=== PATIENT | female | born 1930 | race Caucasian/White ===

== ENCOUNTER 2017-03-21 11:05 | Day surgery (SDC) | payer MEDICARE, OTHER ==
[~2017-03-21] VITALS: Ht 170.2 cm; Wt 62.5 kg
[2017-03-21] VITALS (8 sets, daily range): BP systolic 152–194; BP diastolic 53–78; PULSE 71–86; TEMP 98.1
[2017-03-21 12:01] LABS: INR 2.2 (0.8-3.0); PROTHROMBIN TIME 24.9 SECONDS (9.7-12.8)
[2017-03-21] MEDS ORDERED: AEROSPAN80 MCG/Act IH (12:02)
[2017-03-21] MEDS ORDERED: PROAIR HFA0.09 MG/AC IH (12:02)
[2017-03-21] MEDS ORDERED: ZOCOR 20MG20 MG PO (12:03)
[2017-03-21] MEDS ORDERED: HCTZ 25MG TAB25 MG PO (12:03)
[2017-03-21] MEDS ORDERED: COUMADIN 6MG6 MG/TAB PO (12:04)
[2017-03-21] MEDS ORDERED: SYNTHROID0.05 MG/TA PO (12:04)
[2017-03-21] MEDS ORDERED: LANOXIN 0.120.125 MG PO (12:05)
[2017-03-21 12:06] LABS: POTASSIUM 3.6 mmol/L (3.4-5.0)
[2017-03-21] MEDS ORDERED: TAZTIA360 (12:06)
[2017-03-21 12:41] LABS: THYROID STIMULATING HORMONE 0.555 uIU/mL (0.465-4.680)
[2017-03-21] MEDS ORDERED: ELIQUIS 2.5 PO (15:15)
[2017-03-21] MEDS ORDERED: CORDARONE200 MG/TAB PO ×2 (15:17→15:18)
== END 2017-03-21 17:00 | disposition home or self-care (01) ==
LOC: COL.CAR 11:05
PROVIDERS: Internal Medicine Interventional Cardiology
DX: I48.1 Persistent atrial fibrillation (principal); I08.0 Rheumatic disorders of both mitral and aortic valves
CPT/HCPCS: J2250; J3010

== ENCOUNTER 2017-05-08 11:38 | Day surgery (SDC) | payer MEDICARE, OTHER ==
[~2017-05-08] VITALS: Ht 170.3 cm; Wt 61.3 kg
[~2017-05-08 11:38] MED LIST: AEROSPAN80 MCG/Act IH; CORDARONE200 MG/TAB PO; COUMADIN 6MG6 MG/TAB PO; ELIQUIS 2.5 PO; HYDRODIURIL50 MG PO; LANOXIN 0.120.125 MG PO; PROAIR HFA0.09 MG/AC IH; SYNTHROID0.05 MG/TA PO; TAZTIA360; ZOCOR 20MG20 MG PO
[2017-05-08] MEDS ORDERED: ASPIRIN 81M81 MG/TA2 PO (12:27)
[2017-05-08] MEDS ORDERED: MULTI VITAMINS1 TAB PO (12:28)
[2017-05-08 12:29] VITALS: BP 153/65; PULSE 88; TEMP 98
[2017-05-08] MEDS ORDERED: CALCIUM 600 PLU1 TAB PO (12:29)
[2017-05-08 12:34] LABS: POTASSIUM 3.2 mmol/L (3.4-5.0)
[2017-05-08 12:39] LABS: INR 1.4 (0.8-3.0); PROTHROMBIN TIME 16.7 SECONDS (9.7-12.8)
[2017-05-08 13:08] LABS: THYROID STIMULATING HORMONE 0.902 uIU/mL (0.465-4.680)
[2017-05-08 13:40] VITALS: BP 143/53; PULSE 67
[2017-05-08 13:55] VITALS: BP 151/60; PULSE 71
[2017-05-08 14:10] VITALS: BP 146/54; PULSE 68
[2017-05-08 14:25] VITALS: BP 138/53; PULSE 71
== END 2017-05-08 15:11 | disposition home or self-care (01) ==
LOC: COL.CAR 11:38
PROVIDERS: Internal Medicine Interventional Cardiology
DX: I48.1 Persistent atrial fibrillation (principal); I08.0 Rheumatic disorders of both mitral and aortic valves; Z79.01 Long term (current) use of anticoagulants; I10 Essential (primary) hypertension; E03.9 Hypothyroidism, unspecified; Z82.49 Family history of ischemic heart disease and other diseases of the circulatory system; Z80.9 Family history of malignant neoplasm, unspecified; Z68.21 Body mass index [BMI] 21.0-21.9, adult
CPT/HCPCS: J2704; J3010; J7120

== ENCOUNTER 2017-05-22 11:55 | Day surgery (SDC) | payer MEDICARE, OTHER ==
[~2017-05-22] VITALS: Ht 170.3 cm; Wt 59.8 kg
[2017-05-22] VITALS (315 sets, daily range): BP systolic 130–165; BP diastolic 52–80; PULSE 39–84; TEMP 97.7–98.6; O2SAT 92–97
[~2017-05-22 11:55] MED LIST changes: +ASPIRIN 81M81 MG/TA2 PO; +CALCIUM 600 PLU1 TAB PO; +MULTI VITAMINS1 TAB PO
[2017-05-22 12:42] LABS: MEAN CELL VOLUME 88 fl (80.0-100.0); MEAN CORPUSCULAR HGB CONC 33 g/dl (33.0-37.0); MEAN PLATELET VOLUME 8.7 fl (7.4-10.4); PLATELET COUNT 265 K/mm3 (130-400); RED BLOOD COUNT 4.07 M/mm3 (4.10-5.30); REDCELL DISTRIBUTION WIDTH-CV 14.1 % (11.5-14.5)
[2017-05-22 12:43] LABS: HEMATOCRIT 35.9 % (37.0-47.0); HEMOGLOBIN 11.9 g/dl (12.5-16.0); MEAN CORPUSCULAR HEMOGLOBIN 29 pg (27.0-31.0)
[2017-05-22 12:47] LABS: INR 1.1 (0.8-3.0); PROTHROMBIN TIME 12.2 SECONDS (9.7-12.8)
[2017-05-22 13:07] LABS: POTASSIUM 3.6 mmol/L (3.4-5.0)
[2017-05-22 13:08] LABS: CALCIUM 9.6 mg/dL (8.4-10.2); CREATININE, serum 1.28 mg/dL (0.52-1.25)
[2017-05-23] VITALS (476 sets, daily range): BP systolic 138–149; BP diastolic 60–76; PULSE 83–95; TEMP 98.2–98.6; O2SAT 92–98
[2017-05-23] MEDS ORDERED: BRILINTA90 MG PO ×2 (07:57→08:04)
[2017-05-23] MEDS ORDERED: LOPRESSOR 225 MG/TAB PO (13:41)
== END 2017-05-23 12:05 | disposition home or self-care (01) ==
LOC: ICU 11:55 → COL.CAR 11:55 → ICU 18:21 → COL.CAR 05-23 12:05
PROVIDERS: Internal Medicine Interventional Cardiology
DX: I25.10 Atherosclerotic heart disease of native coronary artery without angina pectoris (principal); I48.0 Paroxysmal atrial fibrillation; Z79.82 Long term (current) use of aspirin; Z79.01 Long term (current) use of anticoagulants; I10 Essential (primary) hypertension; E03.9 Hypothyroidism, unspecified; I08.0 Rheumatic disorders of both mitral and aortic valves; Z82.49 Family history of ischemic heart disease and other diseases of the circulatory system; Z80.9 Family history of malignant neoplasm, unspecified
CPT/HCPCS: OP; C9600; J0583; J2250; J3010; Q9967